=== PATIENT | female | born 1955 | race Caucasian/White ===

== ENCOUNTER 2025-04-11 10:14 | Emergency (ER) | payer MEDICARE, OTHER ==
[2025-04-11] MEDS: Ketorolac 30 MG/ML SDV IM ONE (11:17)
[2025-04-11] MEDS: Lactulose Soln 10 GM/15 ML 30 ML UD Cup PO ONE (11:20)
== END 2025-04-11 11:33 | disposition home or self-care (01) ==
LOC: DL.ED 10:14
DX: K59.00 Constipation, unspecified (principal)
CPT/HCPCS: 74018; 96372; 99284; A9270-GY; J1885